=== PATIENT | male | born 1940 ===

== ENCOUNTER 2017-01-29 12:17 | Observation (INO) | payer MEDICARE ==
[2017-01-29] MEDS ORDERED: Morphine INJ* 4 MG/ML 1 ML CARPUJECT IV ONE (12:46)
[2017-01-29] MEDS ORDERED: Ondansetron INJ* 2 MG/ML VIAL IV ONE (12:47)
[2017-01-29 13:28] LABS: ABS Basophils 0.1 10^3/ul (0-0.2); ABS Eosinophils 0.1 10^3/ul (0-0.6); ABS Lymphocytes 0.9 10^3/ul (1.0-4.8); ABS Monocytes 0.6 10^3/ul (0-0.8); ABS Neutrophils 8.8 10^3/ul (1.5-7.7); ABS Nucleated RBC 0.03 10^3/ul; Hematocrit 47 % (42-52); Hemoglobin 16.1 g/dl (14.0-18.0); Lymphocyte % 8.8 % (25-47); Mean Corpuscular HGB Conc 35 g/dl (31-36); Mean Corpuscular Hemoglobin 31 pg (27-31); Mean Corpuscular Volume 91 fL (80-94); Mean Platelet Volume 8 um3 (7.4-10.4); Nucleated Red Blood Cells % 0.3; Platelet Count 246 10^3/ul (150-450); Red Blood Count 5.13 10^6/ul (4.0-5.4); Red Cell Distribution Width 14 % (10.5-15); White Blood Count 10.5 10^3/ul (3.5-10.8)
[2017-01-29 13:42] LABS: EGFR Non-African American 64.1 (>60)
[2017-01-29 13:43] LABS: INR 0.93 (0.89-1.11)
--- NOTE | 2017-01-29 13:56 | RAD ---
INDICATION: Chest pain. COMPARISON: There are no prior studies available for comparison. TECHNIQUE: A portable view of the chest was obtained. FINDINGS: Cardiac and mediastinal contours appear to be within normal limits. The lungs are clear. No pleural effusion is seen. IMPRESSION: NO EVIDENCE FOR ACUTE DISEASE.
[2017-01-29] MEDS ORDERED: Iohexol 350* (CONTRAST) 500 ML MDV IV ONE (14:00)
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
[2017-01-29] MEDS ORDERED: Omeprazole CAP* 20 MG PO SCH (17:00)
[2017-01-29] MEDS ORDERED: Atorvastatin* 80 MG TAB PO SCH (17:00)
[2017-01-29] MEDS ORDERED: Heparin DRIP 25,000 UNITS(*) 25,000 UNITS/500 ML BAG IVPB SCH (17:45)
[2017-01-29] MEDS ORDERED: Nitro Patch/OINT Remove PATCH OFF SCH (18:00)
[2017-01-29] MEDS ORDERED: Metoprolol Tartrate TAB* 25 MG PO SCH ×2 (18:00→21:00)
[2017-01-29] MEDS ORDERED: Heparin VIAL(*) 5000 UNITS/ML VIAL (FIVE THOUSAND) IV SCH (18:00)
[2017-01-29] MEDS ORDERED: Metoprolol Tartrate TAB* 25 MG ONE (18:17)
[2017-01-29] MEDS ORDERED: Heparin DRIP 25,000 UNITS(*) 25,000 UNITS/500 ML BAG ONE (18:19)
[2017-01-29] MEDS ORDERED: Heparin VIAL(*) 5000 UNITS/ML VIAL (FIVE THOUSAND) ONE (18:19)
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
[2017-01-29] MEDS ORDERED: Nitroglycerin 2% OINT* 1 GM PAK TOPICAL ONE (21:11)
--- NOTE | 2017-01-29 21:35 | PN ---
Progress Note - Progress Note Date of Service: 01/29/17 Note: pt was seen due to c/o chest tightness. He c/o of feeling "wheezing in his throat and chest tightness". EKG shows no ST changes. On evaluation pt is in NAD , appears comfortable, CV: RRR, no murmur. Resp: CTA b/l Troponin up to 5. Dx: unstable angina Will call cardiology and notify. He likely will need cath in AM. Start Nitro paste and if pt continues to have pain -will start nitro gtt Place in ICU cont heparin gtt.
[2017-01-29] MEDS ORDERED: Clopidogrel TAB* 300 MG PO ONE (21:54)
[2017-01-29] MEDS ORDERED: NS 0.9% 1000 ML* 1,000 ML IV SCH (22:30)
[2017-01-29] MEDS: Metoprolol Tartrate IV* 1 MG/ML 5 ML VIAL IV SCH (22:41)
[2017-01-29] MEDS: Morphine INJ* 2 MG/ML 1 ML SYRINGE (TWO MG - NEW SYRINGE VERSION) IV PRN (22:52)
[2017-01-30] MEDS: Metoprolol Tartrate IV* 1 MG/ML 5 ML VIAL IV SCH (04:34)
[2017-01-30] MEDS: Morphine INJ* 2 MG/ML 1 ML SYRINGE (TWO MG - NEW SYRINGE VERSION) IV PRN (04:50)
[2017-01-30 05:52] LABS: ABS Basophils 0.1 10^3/ul (0-0.2); ABS Eosinophils 0.4 10^3/ul (0-0.6); ABS Lymphocytes 2.3 10^3/ul (1.0-4.8); ABS Neutrophils 6.2 10^3/ul (1.5-7.7); ABS Nucleated RBC 0.01 10^3/ul; Eosinophil % 3.9 % (0-6); Hematocrit 44 % (42-52); Lymphocyte % 23.1 % (25-47); Mean Corpuscular HGB Conc 34 g/dl (31-36); Mean Corpuscular Hemoglobin 32 pg (27-31); Mean Corpuscular Volume 92 fL (80-94); Mean Platelet Volume 7 um3 (7.4-10.4); Nucleated Red Blood Cells % 0.1; Platelet Count 252 10^3/ul (150-450); Red Blood Count 4.76 10^6/ul (4.0-5.4); Red Cell Distribution Width 14 % (10.5-15); White Blood Count 10.1 10^3/ul (3.5-10.8)
[2017-01-30] MEDS: Nitroglycerin 2% OINT* 1 GM PAK TOPICAL SCH ×2 (06:35→14:21)
[2017-01-30] MEDS ORDERED: Aspirin EC Low Dose* 81 MG TAB.EC PO SCH (09:00)
[2017-01-30] MEDS ORDERED: Clopidogrel TAB* 75 MG PO SCH (09:00)
[2017-01-30] MEDS ORDERED: CMCS:Pantoprazole TAB (NF) 40 MG TAB PO SCH (09:00)
[2017-01-30] MEDS ORDERED: Clopidogrel TAB* 300 MG PO ONE (09:30)
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
[2017-01-30] MEDS ORDERED: Metoprolol Tartrate TAB* 25 MG PO SCH (10:00)
[2017-01-30] MEDS ORDERED: Heparin(*) 1000 UNIT/ML 10 ML VIAL CATH LAB IV ONE (10:26)
[2017-01-30] MEDS ORDERED: fentaNYL* 50 MCG/ML 2 ML VIAL (100 MCG VIAL) ONE (10:26)
[2017-01-30] MEDS ORDERED: VERAPAMIL 2.5 MG/ML 4 ML VIAL ONE (10:26)
[2017-01-30] MEDS ORDERED: nitroGLYCERIN DRIP* 25,000 MCG/250 ML BTL ONE (10:27)
[2017-01-30] MEDS ORDERED: Lidocaine 1% INJ* 10 MG/ML 30 ML SDV ONE (10:27)
[2017-01-30] MEDS ORDERED: Midazolam* 1 MG/ML 10 ML VIAL (10 MG) ONE (10:27)
[2017-01-30] MEDS ORDERED: Heparin 2 UNITS/ML IVPREMIX* 2,000 ML IV ONE (10:27)
[2017-01-30] MEDS ORDERED: Iohexol 350 (CONTRAST) 200 ML MDV IV ONE (10:51)
[2017-01-30] MEDS ORDERED: Atropine SYRINGE* 0.1 MG/ML 10 ML SYRINGE (1 MG) ONE (12:06)
[2017-01-30] MEDS ORDERED: NS 0.9% 1000 ML* 1,000 ML IV SCH (12:15)
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
[2017-01-30 15:07] VITALS: BP 121/70
--- NOTE | 2017-01-30 15:18 | CATH ---
CC: Dr. Bains in [place]; Dr. Rhys Rebollar CATH REPORT: DATE OF PROCEDURE: 01/30/17 PRIMARY CARE PROVIDER: Dr. Bains in [place] [employer]: Dr. Rhys Rebollar PROCEDURE: 1. Right radial artery access. 2. Bilateral selective coronary cineangiography. 3. Left heart catheterization. 4. Left ventriculography. HISTORY: A 76-year-old male with angina for 1 year, presenting with non-ST elevation infarct. PROCEDURE ACCESS: Right radial artery sheath 6F Slender. MEDICATIONS: 1. Subcu lidocaine. 2. IV Versed. 3. IV fentanyl. 4. Heparin 3000 units IV. 5. Verapamil 3 mg IA. 6. Nitroglycerin 300 micrograms IA. 7. Plavix 300 mg p.o. the evening before cath. DIAGNOSTIC CATHETER: 5F TIG 4, 5F pigtail. HEMODYNAMICS: Initial BP 123/81. LV 97/14-20, no aortic valve gradient on pullback. ANGIOGRAPHY: Right Brachial Artery: Widely patent, was imaged because of some resistance to the J wi re, easily traversed with a Wholey wire. No brachial loop. Left Main: The left main is normal in length, has a distal 70% stenosis.. LAD: The LAD is moderate, extends to the apex, has a proximal tubular lengthy 50% to 60% stenosis, enriquez s moderate calcification. The first diagonal which is small to moderate, has a proximal tubular 80% t o 90% stenosis, is the potential culprit, reference diameter is approximately 2 mm. The apical LAD enriquez s a mild to moderate stenosis. Circumflex: The circumflex is not dominant, moderate, has an 80% stenosis before the first marginal w hich has mild, nonobstructed, proximal plaque. The circumflex distally ends with a small posterolater al. RCA: The RCA is moderate, dominant, has insignificant proximal irregularity, has calcification, has d istal plaquing without significant stenosis. The PDA is small to moderate, has an 80% to 90% proximal stenosis with CLEM II flow. LV Gram: There is localized mild anterolateral localized hypokinesis consistent with diagonal distrib ution, visually estimated LVEF 55%, no mitral regurgitation. CONCLUSION: 1. Significant distal left main and 3 vessel disease with non-ST elevation infarct presentation. 2. Normal LV systolic function with regional wall motion abnormality. 3. Elevated LVDP, otherwise normal left-sided hemodynamics. 5. Successful right radial access. [id number]/[facility] #: [id number]
== END 2017-01-30 16:20 | disposition short-term general hospital (02) | DRG 282 ==
LOC: ED 12:17 → INTOOBSV 16:16 → OBSVTOIN 16:16 → MEDTELE 16:16 → ICU 22:02 → OBSVTOIN 01-30 09:23 → INTOOBSV 01-30 09:23
PROVIDERS: ADMIT Internal Medicine; ATTEND Internal Medicine
DX: I21.4 Non-ST elevation (NSTEMI) myocardial infarction (principal); I25.119 Atherosclerotic heart disease of native coronary artery with unspecified angina pectoris; Z79.01 Long term (current) use of anticoagulants; Z79.899 Other long term (current) drug therapy; K21.9 Gastro-esophageal reflux disease without esophagitis; Z87.891 Personal history of nicotine dependence; Z82.49 Family history of ischemic heart disease and other diseases of the circulatory system
CPT/HCPCS: 36415; 71010; 71275; 80053; 80061; 82550; 83605; 83880; 84484; 85025; 85610; 85730; 87040; 93005; 93458; 96374; 96375; 99156; 99157; 99283; A9270-GY; G0378; J0461; J1644; J2250; J2270; J2405; J3010; J3490; Q9967